=== PATIENT | male | born 1985 | race Caucasian/White ===

== ENCOUNTER → 2018-07-05 | Outpatient (CLI) | payer OTHER ==
--- NOTE | 2018-07-05 17:53 | XR ---
EXAMINATION TYPE: XR finger RT DATE OF EXAM: 07/05/2018 COMPARISON: Comparison images are not available at this location. HISTORY: Smashed underweight a few weeks ago, follow-up exam TECHNIQUE: 2 views right fifth digit FINDINGS: Right fifth digit is examined in 2 views. There is a longitudinal fracture of the distal ph alanx fifth digit. This fracture is comminuted with a transverse fracture identified on the lateral p rojection. Soft tissues appear normal. Joint spaces appear preserved. IMPRESSION: 1. Persistent comminuted fracture distal phalanx right fifth digit.
== END | disposition home or self-care (01) ==
LOC: RADXRYALE 15:57
PROVIDERS: ATTEND Physician Assistant Medical
DX: S62.521D Displaced fracture of distal phalanx of right thumb, subsequent encounter for fracture with routine healing (principal)